=== PATIENT | male | born 1975 | race Hispanic/Latino ===

== ENCOUNTER 2017-04-02 16:51 | Emergency (ER) | payer OTHER ==
[~2017-04-02] VITALS: Ht 180.3 cm; Wt 117.6 kg
[2017-04-02 17:58] LABS: HEMATOCRIT 45.5 % (38.0-50.0); MCH 26.9 PG (29.0-34.0); MCHC 32.1 G/DL (30.0-36.0); MCV 83.9 FL (86-99); MEAN PLAT.VOLUME 13.4 uM^3 (9.0-12.4); PLATELET COUNT 179 K/uL (156-360); RBC DIS.WIDTH-CV 13.2 % (11.8-14.6); RBC DIS.WIDTH-SD 40.5 % (39-53); RED BLOOD COUNT 5.42 M/uL (4.00-5.50); WHITE BLOOD COUNT 9.3 K/uL (4.1-10.2)
[2017-04-02 18:09] LABS: CHLORIDE 103 mEq/L (99-109); POTASSIUM 3.7 mEq/L (3.7-5.4); SODIUM 138 mEq/L (136-147)
[2017-04-02 18:11] LABS: GLUCOSE 117 mg/dL (70-99)
[2017-04-02 18:12] LABS: ANION GAP 11 MEQ/L (2-14)
[2017-04-02 18:15] LABS: GFR ESTIMATE (CALCULATED) > 59 mL/min/
[2017-04-02 18:16] LABS: UREA NITROGEN (BUN) 14 mg/dL (9-23)
[2017-04-02 18:20] LABS: TROP-I INTERPRETATION NEGATIVE; TROPONIN-I < 0.01 ng/mL (0.0-0.30)
[2017-04-02 20:08] LABS: TROP-I INTERPRETATION NEGATIVE; TROPONIN-I < 0.01 ng/mL (0.0-0.30)
[2017-04-02 20:36] VITALS: BP 123/66
== END 2017-04-02 20:40 | disposition home or self-care (01) ==
LOC: EME 16:51
PROVIDERS: Nurse Practitioner Family
DX: R07.9 Chest pain, unspecified (principal); R51 Headache
CPT/HCPCS: 71020; 80048; 84484; 85027; 93005; 99281; 99284